=== PATIENT | male | born 1955 | race Caucasian/White ===

== ENCOUNTER 2016-10-11 08:55 | Emergency (ER) | payer OTHER ==
[2016-10-11 09:14] VITALS: BP 165/95
[2016-10-11] MEDS ORDERED: Aspirin Low Dose CHEW TAB* 81 MG PO ONE (09:28)
--- NOTE | 2016-10-11 10:16 | UC ---
Cardiac HPI - HPI Summary HPI Summary: pt p/w cp/sob that stated yesterday. pain is described as 8/10 tightness localized to the left ant chest. pt also reports head congestion and headache associated with dizziness. headache/congestion and dizziness made worse with bending over. no arm/neck/jaw pain, no sweating, no cough, st, earache, no nasal drainage. pt has pmh of htn, copd. he ia a heavy smoker and drinks 6 beers per day. Pt's father had massive, leathal NV at age 46. - History of Current Complaint Chief Complaint: UCChestPain Stated Complaint: SOB,HEAD COLD Time Seen by Provider: 10/11/16 09:13 Hx Obtained From: Patient, Family/[employer] Onset/Duration: Sudden Onset, Lasting Days, Still Present, Worse Since - this am Timing: Constant Initial Severity: Moderate Current Severity: Moderate Pain Intensity: 8 Chest Pain Location: Left Anterior Character: Tightness Aggravating: Position Alleviating: Rest, Position Associated Signs & Symptoms: Positive: Chest Pain, Headaches, Weakness, Dizziness, SOB. Negative: Numbness, Tingling, Fever, Diaphoresis, Nausea/ Vomiting, Palpitations, Cough, Hemoptysis, Back Pain - Allergy/Home Medications Allergies/Adverse Reactions: Allergies Allergy/AdvReac Type Severity Reaction Status Date / Time No Known Allergies Allergy Verified 10/11/16 09:14 Home Medications: Home Medications Albuterol 2.5MG/3ML (0.083%)* [Ventolin 2.5 MG/3 ML NEB.DIDI*] 2.5 mg INH Q24H PRN 10/11/16 [History Confirmed 10/11/16] PMH/Surg Hx/FS Hx/Imm Hx Cardiovascular History: Hypertension Respiratory History: COPD - Surgical History Surgical History: Yes Surgery Procedure, Year, and Place: neck 2009 [facility] [place] - Family History Known Family History: Positive: Cardiac Disease, Hypertension Negative: Diabetes - Social History Alcohol Use: Occasionally Substance Use Type: None Smoking Status (MU): Heavy Every Day Tobacco Smoker Cessation Counseling: Patient Advised to Stop Review of Systems Constitutional: Negative Eyes: Negative ENT: Sinus Congestion Respiratory: Shortness Of Breath Cardiovascular: Chest Pain Gastrointestinal: Negative Genitourinary: Negative Musculoskeletal: Negative Neurological: Headache Psychological: Negative All Other Systems Reviewed And Are Negative: Yes Physical Exam Triage Information Reviewed: Yes Appearance: Well-Appearing, No Pain Distress, Well-Nourished Vital Signs: Initial Vital Signs Temp 98.3 F 10/11/16 08:58 Pulse 84 10/11/16 08:58 Resp 24 10/11/16 08:58 BP 165/95 10/11/16 08:58 Pulse Ox 97 10/11/16 08:58 Vital Signs Reviewed: Yes Eye Exam: Normal Eyes: Positive: Conjunctiva Clear. Negative: Discharge ENT: Positive: Hearing grossly normal, Pharynx normal, TMs normal - left tm clear. rt tm mostly occuled with cerumen. Negative: Tonsillar swelling, Tonsillar exudate, Trismus, Muffled/hoarse voice Neck: Positive: Supple, Nontender, No Lymphadenopathy Respiratory: Positive: Lungs clear - a few(3-4) opening sqeaks that quickly resolved. air movement not great but no wheezing after opening sqeaks, Normal breath sounds, No respiratory distress, No accessory muscle use Cardiovascular: Positive: RRR, No Murmur Musculoskeletal Exam: Normal Neurological: Positive: Alert, Muscle Tone Normal Psychological: Positive: Age Appropriate Behavior Skin Exam: Normal Diagnostics - EKG Cardiac Rhythm: Sinus: Normal Ectopy: None ST Segment: Non-Specific - minimal st elevations in anterior leads - Differential Diagnoses - Chest Pain Differential Diagnosis/HQI/PQRI: Acute NV, Lower Respiratory Infection - Differential Diagnoses - Palpitations Differential Diagnosis/HQI/PQRI: Chronic Obstructive Pulmonary Disease - Clinical Impression Provider Diagnoses: cp r/o acs Discharge - Discharge Plan Condition: Stable Disposition: [facility] Referrals: Layo Heller MD [Primary Care Provider] -
== END 2016-10-11 09:35 | disposition short-term general hospital (02) ==
LOC: UCCORT 08:55
DX: R07.9 Chest pain, unspecified (principal); F17.210 Nicotine dependence, cigarettes, uncomplicated; Z82.49 Family history of ischemic heart disease and other diseases of the circulatory system
CPT/HCPCS: 93005; 99203; A9270-GY; G0463